=== PATIENT | male | born 1950 | race Caucasian/White ===

== ENCOUNTER 2022-08-15 06:21 | Day surgery (SDC) | payer BC ==
[2022-08-11 11:11] LABS: BASOPHILS # (AUTO) 0.1 X10'3 (0-0.2); BASOPHILS % (AUTO) 1.4 % (0-1); EOSINOPHILS # (AUTO) 0.4 X10'3 (0-0.9); EOSINOPHILS % (AUTO) 4.8 % (0-6); HEMATOCRIT 42.3 % (42.0-52.0); HEMOGLOBIN 14.8 g/dl (14.0-17.9); LYMPHOCYTES # (AUTO) 1.9 X10'3 (1.1-4.8); LYMPHOCYTES % (AUTO) 23.3 % (21-51); MEAN CORPUSCULAR HEMOGLOBIN 31.1 PG (27.0-31.0); MEAN CORPUSCULAR VOLUME 88.7 FL (78-98); MEAN PLATELET VOLUME 8.3 FL (7.4-10.4); MONOCYTES # (AUTO) 0.5 X10'3 (0-0.9); MONOCYTES % (AUTO) 6.3 % (2-12); NEUTROPHILS # (AUTO) 5.3 X10'3 (1.8-7.7); NEUTROPHILS % (AUTO) 64.2 % (42-75); PLATELET COUNT 199 X10'3 (140-440); RED BLOOD COUNT 4.77 X10'6 (4.70-6.10); RED CELL DISTRIBUTION WIDTH 13.9 % (11.5-14.5); WHITE BLOOD COUNT 8.3 X10'3 (4.5-11.0)
[2022-08-11 11:24] LABS: APTT 29 SECONDS (22-32)
[2022-08-11 11:26] LABS: ALBUMIN 4.2 G/DL (3.4-5.0); ANION GAP 6 (8-16); BLOOD UREA NITROGEN 23 MG/DL (7-18); BUN/CREATININE RATIO 20.7 (5.4-32.0); CHLORIDE 99 MMOL/L (99-107); CHOL/HDL RATIO 2.6 (0.00-4.99); CHOLESTEROL 135 MG/DL (0-200); CREATININE 1.11 MG/DL (0.60-1.10); GLUCOSE 171 MG/DL (70-104); HDL CHOLESTEROL 51 MG/DL (35-60); LDL CHOLESTEROL 71 MG/DL (50-100); POTASSIUM 3.9 MMOL/L (3.5-5.1); SODIUM 138 MMOL/L (135-145); TOTAL CARBON DIOXIDE 32.6 MMOL/L (24-32); TRIGLYCERIDES 177 MG/DL (20-135); eGFR 65 ML/MIN
[~2022-08-15] VITALS: Ht 172.7 cm; Wt 90.7 kg
[2022-08-15] VITALS (9 sets, daily range): BP systolic 127–183; BP diastolic 59–89
[2022-08-15] MEDS ORDERED: nitroGLYCERIN-Tridil 50MG/D5W 250 ML IV ONE (07:29)
[2022-08-15] MEDS ORDERED: fentaNYL/PF 50MCG/1 ML 2ML syringe ONE ×2 (07:30→08:16)
[2022-08-15] MEDS ORDERED: verapamil 2.5 mg/ml inj IV ONE (07:30)
[2022-08-15] MEDS ORDERED: heparin 1,000unit/ml 10ml vial 10 ML ONE (07:30)
[2022-08-15] MEDS ORDERED: LIDOcaine 1% (10mg/ml) 2ml vial ONE (07:30)
[2022-08-15] MEDS ORDERED: midazolam 1 mg/ML 2ml injection ONE ×2 (07:30→08:10)
[2022-08-15] MEDS ORDERED: iohexol 350MG/ML 100ml bottle IV ONE (07:31)
[2022-08-15] MEDS ORDERED: LORazepam 0.5 MG tablet PO PRN (07:40)
[2022-08-15] MEDS ORDERED: diphenhydrAMINE 25mg capsule PO PRN (07:40)
[2022-08-15] MEDS ORDERED: normal saline 1,000 ML IV SCH (07:40)
[2022-08-15] MEDS ORDERED: IRBE1TAB33 PO (07:50)
[2022-08-15] MEDS ORDERED: METF-1203 PO (07:50)
[2022-08-15] MEDS ORDERED: METO200T49 PO (07:50)
[2022-08-15] MEDS ORDERED: NIFE-33 PO (07:50)
[2022-08-15] MEDS ORDERED: ASPI81TA52 PO (07:50)
[2022-08-15] MEDS ORDERED: ATOR20TA66 PO (07:50)
[2022-08-15] MEDS ORDERED: LIDOcaine 1% 30ml preserv. free vial ONE (08:39)
== END 2022-08-15 12:30 | disposition home or self-care (01) ==
LOC: SSTAY O 06:21
PROVIDERS: ATTEND Student in an Organized Health Care Education/Training Program
DX: I71.20 Thoracic aortic aneurysm, without rupture, unspecified (principal); I25.10 Atherosclerotic heart disease of native coronary artery without angina pectoris; I10 Essential (primary) hypertension; E78.5 Hyperlipidemia, unspecified; E11.9 Type 2 diabetes mellitus without complications; F41.9 Anxiety disorder, unspecified; J43.9 Emphysema, unspecified; I35.1 Nonrheumatic aortic (valve) insufficiency; I70.203 Unspecified atherosclerosis of native arteries of extremities, bilateral legs; F17.210 Nicotine dependence, cigarettes, uncomplicated; Z79.4 Long term (current) use of insulin; Z68.29 Body mass index [BMI] 29.0-29.9, adult; Z85.828 Personal history of other malignant neoplasm of skin; Z79.899 Other long term (current) drug therapy; Z79.82 Long term (current) use of aspirin; Z79.01 Long term (current) use of anticoagulants
CPT/HCPCS: 36415; 80048; 80061; 85025; 85610; 85730; 93005; 93458; 99152; 99153; C1760; C1769; C1894; J1644; J2250; J3010; J3490; J7030; Q0163; Q9967; A6258

== ENCOUNTER 2023-06-20 08:50 | Outpatient (CLI) | payer BC ==
[~2023-06-20 08:50] MED LIST: ASPI81TA52 PO; ATOR20TA66 PO; IRBE1TAB33 PO; METF-1203 PO; METO200T49 PO; NIFE-33 PO
[2023-06-20 12:33] LABS: ALANINE AMINOTRANSFERASE 27 U/L (12-78); ALBUMIN 3.9 G/DL (3.4-5.0); ALKALINE PHOSPHATASE 43 IU/L (46-116); ANION GAP 7 (8-16); ASPARTATE AMINO TRANSFERASE 24 U/L (10-37); BLOOD UREA NITROGEN 22 MG/DL (7-18); CALCIUM 8.9 MG/DL (8.5-10.1); CHLORIDE 99 MMOL/L (99-107); CREATININE 1.16 MG/DL (0.60-1.10); GLUCOSE 202 MG/DL (70-104); POTASSIUM 3.9 MMOL/L (3.5-5.1); SODIUM 135 MMOL/L (135-145); TOTAL CARBON DIOXIDE 29.2 MMOL/L (24-32); TOTAL PROTEIN 7.9 G/DL (6.4-8.2); eGFR 62 ML/MIN
[2023-06-27] MEDS ORDERED: iohexol 350MG/ML 100ml bottle IV ONE (09:01)
== END 2023-06-27 23:59 | disposition home or self-care (01) ==
LOC: RAD 08:50
PROVIDERS: ATTEND Thoracic Surgery (Cardiothoracic Vascular Surgery)
DX: I71.21 Aneurysm of the ascending aorta, without rupture (principal); I70.0 Atherosclerosis of aorta; K44.9 Diaphragmatic hernia without obstruction or gangrene; M53.84 Other specified dorsopathies, thoracic region
CPT/HCPCS: 36415; 71275; 80053; J3490; Q9967

== ENCOUNTER 2025-02-03 11:04 | Day surgery (SDC) | payer BC ==
[2025-01-30 10:37] LABS: MEAN PLATELET VOLUME 9.1 FL (7.4-10.4); RED CELL DISTRIBUTION WIDTH 14.0 % (11.5-14.5)
[2025-01-30 10:52] LABS: APTT 26 SECONDS (22-32); INR 1.0 INR
[2025-01-30 10:54] LABS: CHOL/HDL RATIO 2.5 (0.00-4.99); CREATININE 1.34 MG/DL (0.60-1.10); LDL CHOLESTEROL 47 MG/DL (50-100); TOTAL CARBON DIOXIDE 30.5 MMOL/L (24-32); eGFR 52 ML/MIN
[2025-02-03] VITALS (9 sets, daily range): BP systolic 98–136; BP diastolic 56–64; PULSE 50–64; RESP 13–18; TEMP 98.5; O2SAT 93–97
[~2025-02-03] VITALS: Ht 172.7 cm; Wt 88.9 kg
[~2025-02-03 11:04] MED LIST changes: -METF-1203 PO; +METF-900 PO; +METO200T37 PO; -METO200T49 PO
--- NOTE | 2025-02-03 11:46 | ELECTROCARDIOGRAPH REPORT ---
[facility] Test Date: 2025-02-03 Test Time: 11:44:31 Pat Name: KIMBERLI CHAVEZ Department: [facility] Patient ID: [id number] Room: Gender: M Hitcher: LINH : 1950 Requested By: VANCE PEREZ Order Number: [id number] Reading MD: Dr. ZIA Benton Measurements Intervals [place] Rate: 51 P: 38 DC: 294 QRS: 68 QRSD: 87 T: 57 QT: 441 QTc: 407 Interpretive Statements Sinus bradycardia Prolonged DC interval Electronically Signed On 02-03-2025 17:18:[address] ZIA Benton Please click the below link to view image of tracing.
[2025-02-03] MEDS ORDERED: fentaNYL/PF 50MCG/1 ML 2ML syringe ONE (13:05)
[2025-02-03] MEDS ORDERED: midazolam 1 mg/ML 2ml injection ONE (13:05)
[2025-02-03] MEDS ORDERED: LIDOcaine 1% 30ml preserv. free vial ONE (13:05)
[2025-02-03] MEDS ORDERED: HYDROcodone/acetaminophen 10/325mg tab PO PRN (14:55)
[2025-02-03] MEDS ORDERED: OXAZEpam 15mg capsule PO PRN (14:55)
[2025-02-03] MEDS ORDERED: HYDROcodone/acetaminophen 5mg/325mg tablet PO PRN (14:55)
[2025-02-03] MEDS ORDERED: ondansetron/PF 4mg/2ml inj IV PRN (14:55)
[2025-02-06] MEDS ORDERED: NIFE60TA2 PO (15:18)
[2025-02-06] MEDS ORDERED: ALBU18HF2 INH (15:18)
[2025-02-06] MEDS ORDERED: IBUP-1984 PO (15:18)
--- NOTE | 2025-02-09 04:27 | CARDIOLOGY REPORT ---
DATE OF SERVICE: 02/03/2025 DICTATING PHYSICIAN: Madan Edouard MD PROCEDURES: * Left heart catheterization. * Selective coronary angiography. * Left ventriculography. * Conscious sedation monitoring time for 15 minutes. INDICATION: Thoracic aneurysm. PHYSICIAN: Madan Edouard MD DESCRIPTION OF PROCEDURE: After informed consent was obtained, the patient was brought to the lab where he was prepped and draped in the usual sterile fashion. A 6-British sheath was inserted into the right femoral artery. Thereafter, using a JL5 followed by a JR4 catheter, selective coronary angiography was performed. The pigtail catheter was used to cross the left ventricle where left ventricular end-diastolic pressure was obtained. HEMODYNAMICS: For the patient's hemodynamics, please refer to the event log. Left ventricular end-diastolic pressure is mmHg. FINDINGS: The left main coronary artery is a short caliber vessel free of significant disease. The left anterior descending coronary artery has a diffuse 30%-40% calcified mid vessel stenosis. The circumflex coronary artery is a large caliber vessel with mild luminal irregularities. The right coronary artery is chronically occluded with left to right collaterals and right to right collaterals. Left ventricular end-diastolic pressure is 12 mmHg. IMPRESSION: * Occluded right coronary artery with left to right and right to right collaterals. * A 30%-40% diffuse calcified stenosis of the mid LAD. * Left ventricular end-diastolic pressure is 12 mmHg. Madan Edouard MD TID: [id number] RECEIPT: [id number] HEATHER/ROYER/SADIA
== END 2025-02-03 17:20 | disposition home or self-care (01) ==
LOC: SSTAY O 11:04
PROVIDERS: ATTEND Student in an Organized Health Care Education/Training Program
DX: I71.20 Thoracic aortic aneurysm, without rupture, unspecified (principal); I25.10 Atherosclerotic heart disease of native coronary artery without angina pectoris; R94.31 Abnormal electrocardiogram [ECG] [EKG]; I10 Essential (primary) hypertension; E11.9 Type 2 diabetes mellitus without complications; E78.00 Pure hypercholesterolemia, unspecified; F41.9 Anxiety disorder, unspecified; J43.9 Emphysema, unspecified; Z79.84 Long term (current) use of oral hypoglycemic drugs; Z79.82 Long term (current) use of aspirin; Z79.899 Other long term (current) drug therapy
CPT/HCPCS: 36415; 80048; 80061; 83695; 85025; 85610; 85730; 93005; 93458; 99152; C1760; J1644; J2003; J2250; J3010; J7030; Q0163; Q9967; 99153; A4615; A6258

== ENCOUNTER 2025-05-18 05:12 | Emergency (ER) | payer BC, OTHER ==
[~2025-05-18] VITALS: Ht 175.3 cm; Wt 60.3 kg
[~2025-05-18 05:12] MED LIST changes: +ALBU18HF2 INH; +AREDS 2 PO; -NIFE-33 PO; +NIFE60TA2 PO
[2025-05-18 05:19] VITALS: TEMP 97.6
--- NOTE | 2025-05-18 06:07 | Physician Documentation ---
History of Present Illness ~ General Chief Complaint: Post-operative complication Stated Complaint: WOUND BLEED Time Seen by MD: 06:04 Primary Medical Doctor: Kathy Keyes Mode of Arrival: EMS, Stretcher History of Present Illness Initial Comments 74-year-old male, presenting with bleeding from his G-tube site Per chart review, the patient was admitted to the hospital a couple of months ago, with a complicated stay related to an aortic aneurysm repair/CABG, complicated by cardiac arrest. He was discharged to a long-term care facility. He presents today with bleeding from around the G-tube site. He thinks he rolled over an asleep and caught the tube, causing bleeding. Someone said maybe it was getting infected. He also reports some low back pain. He feels like he pulled a muscle in his back. No fevers or other associated symptoms. No significant abdominal pain currently. He has not use the feeding tube for over a month and is wondering how to get it removed. Medication Reconciliation Allergies: Coded Allergies: No Known Allergies (Unverified , 02/03/25) Scheduled Aspirin (Aspirin EC), 1 TAB PO DAILY, (Reported) Atorvastatin Calcium (Atorvastatin Calcium), 1 TAB PO DAILY, (Reported) Irbesartan/Hydrochlorothiazide (Irbesartan-Hctz 300-12.5 Mg Tb), 1 TAB PO DAILY, (Reported) Metformin Hcl* (Metformin ER*), 1 TAB PO BID, (Reported) Metoprolol Succinate (Metoprolol Succinate), 2 TAB PO DAILY, (Reported) Nifedipine (Procardia Xl), 1 TAB PO DAILY, (Reported) [Areds 2], 2 CAPSULE PO DAILY, (Reported) Scheduled PRN Albuterol Sulfate (Ventolin Hfa), 2 PUFFS INH Q4HPRN PRN for wheezing, (Reported) Past Medical History Patient History: Patient reports no known family medical history. Review of Systems Constitutional: Denies: fever Gastrointestinal: Denies: abdominal pain Physical Exam Physical Exam Vital Signs: Temperature: 97.6, Source: Oral, Heart Rate: 76, Respiratory Rate: 14, BP: 122/79, Pulse Oximetry: 98, Weight: 60.300 Physical Exam General: This is a pleasant and tired appearing older man, at bedside HEENT: Atraumatic, oropharynx is moist Heart: Regular rate and rhythm, normal-appearing peripheral perfusion Lungs: normal work of breathing, normal oxygen saturation on room air Abdomen: Soft, nondistended, nontender all quadrants. Feeding tube in place. No active bleeding from around the tube. No erythema or purulent drainage from around the tube. Back: Mild tenderness on palpation of the lower back muscles Neuro: Alert and oriented Psychiatric: Calm and cooperative with exam Progress Results/Orders Results/Orders Completed Orders - LONNY RAMIREZ MD Lidocaine 5% Patch (Lidoderm 5% Patch) (05/18/25 06:20) Medications Received in ER Medications (Trade) Dose Ordered Sig/Shannon Route PRN Reason Start Time Stop Time Status Last Admin Dose Admin (Lidoderm 5% Patch) 1 patch ONCE ONCE TP 05/18/25 06:20 05/18/25 06:21 DC 05/18/25 06:32 1 PATCH Vital Signs 05/18/25 05/18/25 05/18/25 05/18/25 05:19 05:28 05:46 06:37 Temp 97.6 Pulse 76 76 74 Resp 14 14 14 12 B/P (MAP) 122/79 122/79 (93) 124/76 (92) Pulse Ox 97 98 95 05/18/25 07:32 Pulse 72 Resp 16 B/P (MAP) 105/72 Pulse Ox 96 Consults/PCP Consults/PCP : Additional Comment Consult: I spoke to Dr. Carlos, the surgeon that put in the feeding tube to ask about removal. He recommends follow up in clinic this week to have it removed Medical Decision Making Additional information obtaine: old records Findings Reviewed past admission Differential Diagnosis Differential includes bleeding from the feeding tube, infection, back spasm Assessment 74-year-old male presenting with bleeding from around a feeding tube and low back pain. His low back pain seems musculoskeletal, no evidence of a more dangerous process. He was given a lidocaine patch. The feeding tube did have some mild bleeding around the site, which appears superficial. Lidocaine with epinephrine was injected and bleeding was controlled. It was bandaged. I did cut the feeding tube to a shorter length so it was easier to bandage and less likely to catch on things. I called his surgeon as above, and he will follow up in clinic to have this removed. No evidence of infection, or other dangerous complication. Departure Time of Disposition: 06:34 Disposition: 01 HOME / SELF CARE / HOMELESS Impression: Primary Impression: Bleeding Additional Impression: Low back strain Condition: Stable Referrals: NO PRIMARY CARE PROVIDER (PCP) DIPIKA CARLOS MD Education Educated: Patient, Family Educated regarding: diagnosis, treatment, need for follow up Signature Scribe Signature: na Attestation: LONNY Hercules MD May 18, 2025 06:07
[2025-05-18 07:32] VITALS: BP 105/72; PULSE 72; RESP 16; O2SAT 96
== END 2025-05-18 07:36 | disposition home or self-care (01) ==
LOC: ER 05:12
DX: S39.012A Strain of muscle, fascia and tendon of lower back, initial encounter (principal); K94.21 Gastrostomy hemorrhage; Z95.1 Presence of aortocoronary bypass graft; Z79.82 Long term (current) use of aspirin; Z79.899 Other long term (current) drug therapy; X58.XXXA Exposure to other specified factors, initial encounter; Y93.89 Activity, other specified; Y92.89 Other specified places as the place of occurrence of the external cause; Y99.8 Other external cause status
CPT/HCPCS: 99283; A6212; A6449